=== PATIENT | male | born 1985 | race African-American/Black ===

== ENCOUNTER 2020-12-19 09:49 | Emergency (ER) | payer MEDICAID ==
[~2020-12-19] VITALS: Ht 185.4 cm; Wt 113.0 kg
[2020-12-19] MEDS ORDERED: IPRATROPIUM BROMIDE (0.02%) 0.5MG/2.5ML NEB HHN STA (10:37)
[2020-12-19] MEDS ORDERED: ALBUTEROL (0.083%) 2.5MG/3ML NEB HHN STA (10:37)
[2020-12-19] MEDS ORDERED: PREDNISONE 20MG TABLET PO ONE (10:45)
[2020-12-19] MEDS ORDERED: P20 MT (12:26)
[2020-12-19] MEDS ORDERED: ALBU6.7H9 INH (12:26)
[2020-12-19 12:58] VITALS: BP 150/82
== END 2020-12-19 12:59 | disposition home or self-care (01) ==
LOC: ER 10:00
DX: J45.901 Unspecified asthma with (acute) exacerbation (principal); I10 Essential (primary) hypertension; F17.210 Nicotine dependence, cigarettes, uncomplicated
CPT/HCPCS: 71045; 93005; 94644; 99285; J7512; Z7610

== ENCOUNTER 2020-12-21 16:33 | Emergency (ER) | payer OTHER, MEDICAID ==
[~2020-12-21] VITALS: Ht 188 cm; Wt 123.0 kg
[~2020-12-21 16:33] MED LIST: ALBU6.7H9 INH; P20 MT
[2020-12-21 16:44] VITALS: BP 157/100
[2020-12-21] MEDS ORDERED: ALBUTEROL (0.083%) 2.5MG/3ML NEB HHN STA (16:49)
[2020-12-21] MEDS ORDERED: IPRATROPIUM BROMIDE (0.02%) 0.5MG/2.5ML NEB HHN STA (16:49)
[2020-12-21] MEDS ORDERED: ALBUTEROL 6.7GM HFA INHALER ORI ONE (17:00)
[2020-12-21] MEDS ORDERED: P20 PO (17:32)
[2020-12-21] MEDS ORDERED: ALBU6.7H9 INH (17:32)
[2020-12-21] MEDS ORDERED: HYDR25TA MT (17:32)
== END 2020-12-21 17:43 ==
LOC: ER 16:45
DX: J98.9 Respiratory disorder, unspecified (principal); I10 Essential (primary) hypertension
CPT/HCPCS: 94640; 99283; Z7610